=== PATIENT | female | born 1975 | race Caucasian/White ===

== ENCOUNTER 2016-09-13 22:45 | Emergency (ER) | payer SELFPAY ==
[~2016-09-13] VITALS: Ht 177.8 cm; Wt 86.2 kg
--- NOTE | 2016-09-13 22:45 | NUR ---
PT JENAE FRANCO, PREBOOK. TAKEN TO OF
[2016-09-13 22:54] VITALS: BP 123/65
--- NOTE | 2016-09-13 23:24 | NUR ---
PT TAKEN TO XRAY
[2016-09-14 00:03] VITALS: BP 117/68
--- NOTE | 2016-09-14 00:03 | NUR ---
Patient discharged with v/s stable. Written and verbal after care instructions given and explained. Patient alert, oriented and verbalized understanding of instructions. Police with in custody. All questions addressed prior to discharge. ID band removed. Patient advised to follow up with PMD. Rx of Naproxen given. Patient educated on indication of medication including possible reaction and side effects. Opportunity to ask questions provided and answered.
== END 2016-09-14 00:03 ==
LOC: MED 22:45
DX: S93.402A Sprain of unspecified ligament of left ankle, initial encounter (principal); V89.2XXA Person injured in unspecified motor-vehicle accident, traffic, initial encounter; Y93.I9 Activity, other involving external motion; Y92.488 Other paved roadways as the place of occurrence of the external cause; Y99.8 Other external cause status
CPT/HCPCS: 73610; 73630; 99284